=== PATIENT | female | born 1985 | race Caucasian/White ===

== ENCOUNTER 2017-12-24 18:23 | Emergency (ER) | payer OTHER ==
[~2017-12-24] VITALS: Ht 180.3 cm; Wt 77.3 kg
[2017-12-24] MEDS ORDERED: CLARITIN10 M2 PO (18:44)
[2017-12-24] MEDS ORDERED: BACTRIM DS1 TAB PO (19:01)
[2017-12-24 19:13] VITALS: BP 122/81
== END 2017-12-24 19:13 | disposition home or self-care (01) ==
LOC: ED 18:23
DX: L03.115 Cellulitis of right lower limb (principal); F17.210 Nicotine dependence, cigarettes, uncomplicated

== ENCOUNTER 2019-06-18 | Emergency (ER) | payer SELFPAY ==
[~2019-06-18] MED LIST: BACTRIM DS1 TAB PO; CLARITIN10 M2 PO
[2019-06-18] MEDS ORDERED: BACTRIM DS1 TAB PO (21:06)
[2019-06-18] MEDS ORDERED: KEFLEX500 M1 PO (21:06)
== END 2019-06-18 21:13 | disposition home or self-care (01) | DRG 603 ==
DX: L02.11 Cutaneous abscess of neck (principal); F17.210 Nicotine dependence, cigarettes, uncomplicated; Z53.20 Procedure and treatment not carried out because of patient's decision for unspecified reasons